=== PATIENT | female | born 1980 | race Caucasian/White ===

== ENCOUNTER 2021-04-13 15:47 | Emergency (ER) | payer OTHER ==
[~2021-04-13] VITALS: Ht 154.9 cm; Wt 63.5 kg
[2021-04-13 15:47] VITALS: BP 145/95
--- NOTE | 2021-04-13 15:47 | NUR ---
Patient BIBA ALS accompanied by LAC[facility], transferred to bed 6. RN evaluating the patient at bedside.
[2021-04-13 16:03] VITALS: BP 145/95
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
--- NOTE | 2021-04-13 16:49 | NUR ---
PT LEFT AGAINST MEDICAL ADVICE.
== END 2021-04-13 16:44 | disposition left against medical advice (07) ==
LOC: MED 15:47
DX: T40.415A Adverse effect of fentanyl or fentanyl analogs, initial encounter (principal); T40.5X5A Adverse effect of cocaine, initial encounter; F17.200 Nicotine dependence, unspecified, uncomplicated; F15.90 Other stimulant use, unspecified, uncomplicated; Z98.890 Other specified postprocedural states; Y92.89 Other specified places as the place of occurrence of the external cause
CPT/HCPCS: 99283